=== PATIENT | female | born 1970 | race Two or more races ===

== ENCOUNTER 2023-06-24 14:59 | Emergency (ER) | payer OTHER ==
[~2023-06-24] VITALS: Ht 167.6 cm; Wt 89.4 kg
[2023-06-24] MEDS: ACETAMINOPHEN ES 500 MG TABLET PO ONE (15:21)
[2023-06-24] MEDS: IBUPROFEN 400 MG TABLET PO ONE (15:21)
[2023-06-24] MEDS ORDERED: ACETAMINOPHEN ES 500 MG TABLET ONE (15:22)
[2023-06-24] MEDS ORDERED: IBUPROFEN 400 MG TABLET ONE (15:23)
[2023-06-24] MEDS ORDERED: TRAM-351 PO (17:15)
[2023-06-24] MEDS ORDERED: KETO10TA2 PO (17:15)
[2023-06-24 17:46] VITALS: BP 124/72; TEMP 97.6; O2SAT 99
== END 2023-06-24 17:48 | disposition home or self-care (01) ==
LOC: ER 15:05
DX: S82.491A Other fracture of shaft of right fibula, initial encounter for closed fracture (principal); M25.572 Pain in left ankle and joints of left foot; W01.0XXA Fall on same level from slipping, tripping and stumbling without subsequent striking against object, initial encounter; Y93.89 Activity, other specified; Y92.89 Other specified places as the place of occurrence of the external cause; Y99.8 Other external cause status
CPT/HCPCS: 73564-TC; 73610-TC